=== PATIENT | male | born 1990 | race Caucasian/White ===

== ENCOUNTER 2018-01-23 17:35 | Emergency (ER) | payer SELFPAY ==
[2018-01-23 20:11] VITALS: BP 142/82
--- NOTE | 2018-01-23 20:14 | ED ---
Bite Injury/Animal - HPI Summary HPI Summary: Pt here w/ Lt hand cat bite 3 days ago. Was bitten by his own cat (shon UTD). Started augmentin day of and seemed to be doing okay but worse today (NOTE: went back to work today, no elevation, no rest and no ibuprofen). Came in as his line around redness has been spreading each day and thought he should get this checked out. Denies fever, chills, N/V/D, numbness, tingling, weakness. Back of hand feels puffy, tender and warm - better with ice. He admits he does not have insurance and would like to keep testing and treatment to a minimum. - History of Current Complaint Chief Complaint: EDExtremityUpper Stated Complaint: ANIMAL BITE LT HAND Time Seen by Provider: 01/23/18 18:56 Hx Obtained From: Patient, Family/Display Coordinator - female want ad receiver Pain Intensity: 2 - Allergies/Home Medications Allergies/Adverse Reactions: Allergies Allergy/AdvReac Type Severity Reaction Status Date / Time No Known Allergies Allergy Verified 01/23/18 17:44 PMH/Surg Hx/FS Hx/Imm Hx Previously Healthy: Yes Endocrine/Hematology History: Denies: Hx Anticoagulant Therapy, Hx Blood Disorders, Hx Diabetes - Immunization History Immunizations Up to Date: Yes Infectious Disease History: No Infectious Disease History: Denies: Traveled Outside the [place] in Last 30 Days - Social History Occupation: Employed Full-time - self employed - [employer] Lives: With Family Alcohol Use: Weekly Substance Use Type: Reports: Marijuana Hx Tobacco Use: No Smoking Status (MU): Never Smoked Tobacco Review of Systems Constitutional: Negative Positive: no symptoms reported Positive: Edema. Negative: Decreased ROM Skin: Other - infection Neurological: Negative Psychological: Normal All Other Systems Reviewed And Are Negative: Yes Physical Exam Triage Information Reviewed: Yes Vital Signs On Initial Exam: Initial Vitals Temp Pulse Resp BP Pulse Ox 97.8 F 78 16 161/62 99 01/23/18 17:42 01/23/18 17:42 01/23/18 17:42 01/23/18 17:42 01/23/18 17:42 Vital Signs Reviewed: Yes Appearance: Positive: Well-Appearing, No Pain Distress, Well-Nourished Skin: Positive: Warm, Skin Color Reflects Adequate Perfusion, Dry - 2 areas of small scabbing over dorsum of Lt hand - 1 over 2nd MCP joint and other over tendon more proximal to 2nd MCP joint (extensor surfaces); erythema is moving just proximal to wrist crease - no streaking and no palpable LN's throughout entire UE; area of edema is red, warm and boggy - no drainage w/ pressure Head/Face: Positive: Normal Head/Face Inspection Eyes: Positive: EOMI ENT: Positive: Hearing grossly normal Respiratory/Lung Sounds: Positive: Breath Sounds Present Cardiovascular: Positive: Pulses are Symmetrical in both Upper and Lower Extremities Musculoskeletal: Positive: Strength/ROM Intact - no pain along Lt index finger extensor tendon w/ passive ROM Neurological: Positive: Normal, Sensory/Motor Intact, Alert, Oriented to Person Place, Time, CN Intact II-III Psychiatric: Positive: Normal Procedures - Procedure Summary Procedure Summary: Soaked hand in warm water, unroofed proximal scab w/ sterile forceps after washing hand with iodine - expressed scant purulent drainage from site - irrigated opening with sterile saline and packed with tiny amount of sterile gauze - covered and wrapped w/ sterile gauze and MAXIMILIANO wrap - pt tolerated well Diagnostics - Vital Signs Vital Signs Temp Pulse Resp BP Pulse Ox 01/23/18 17:42 97.8 F 78 16 161/62 99 - Laboratory Lab Statement: Any lab studies that have been ordered have been reviewed, and results considered in the medical decision making process. Bite Injury Course/Dx - Course Course Of Treatment: Pt's cat bite infection appears to be worsening despite augment however he has been applying ice, today he didn't elevate or rest or take ibuprofen (worse) and initially applied triple anbx ointment, occluding wound from drainage. Does not appear to have tendon infection today. Discussed with Dr. Dietrich who feels adding levaquin and close monitoring with heat, soaks, etc should suffice however if worse, return to ED. Pt and female want ad receiver agree w/ plan. Discussed danger s/sx of when to return to ED. 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 Discharge - Discharge Plan Condition: Stable Disposition: HOME Prescriptions: Levofloxacin TAB* [Levaquin TAB*] 750 mg PO DAILY #10 tab Patient Education Materials: Animal Bite (ED) Referrals: No Primary Care Phys,NOPCP [Primary Care Provider] - Additional Instructions: Soak and apply warm compresses the milk area to express infection if possible Keep elevated Rest Take ibuprofen - may take 800mg every 8 hours with food until swelling improves , then drop to 600mg every 6 hours as needed Continue augmentin as directed Follow-up with medical provider in 1-2 days for recheck *If worse or you develop streaking, fever, nausea, pain with passive movement of Left index finger (you move the finger with your other hand and it hurts), return to ED
== END 2018-01-23 20:11 | disposition home or self-care (01) ==
LOC: ED 17:35
DX: S61.452A Open bite of left hand, initial encounter (principal); L03.114 Cellulitis of left upper limb; B96.89 Other specified bacterial agents as the cause of diseases classified elsewhere; W55.01XA Bitten by cat, initial encounter; Y92.9 Unspecified place or not applicable
CPT/HCPCS: 99282

== ENCOUNTER 2018-01-24 14:45 | Emergency (ER) | payer SELFPAY ==
[2018-01-24] MEDS ORDERED: Tetan/Diph/Pertus SYR(Tdap)* 0.5 ML SYR(BOOSTRIX) use SYR IM ONE (14:58)
--- NOTE | 2018-01-24 15:36 | ED ---
Bite Injury/Animal - HPI Summary HPI Summary: Patient here for recheck of right hand Bite infection as well as to update his tetanus vaccine. Call PCP today and last tetanus was in 2007. He has kept his dressing in place since leaving last night until he came in this afternoon. There is some purulent drainage from the puncture wound that was unroofed yesterday. Redness and swelling have improved. Patient on longer has pain with active or passive index finger range of motion. Denies streaking, fever, fatigue. Has been taking Augmentin and Levaquin as directed. Continues to elevate, rest, apply heat and has been taking ibuprofen today as well. - History of Current Complaint Chief Complaint: EDGeneral Stated Complaint: TETANUS SHOT Time Seen by Provider: 01/24/18 14:58 Hx Obtained From: Patient, Family/Cold Meat Cook - female loin trimmer Pain Intensity: 0 - Allergies/Home Medications Allergies/Adverse Reactions: Allergies Allergy/AdvReac Type Severity Reaction Status Date / Time No Known Allergies Allergy Verified 01/23/18 17:44 PMH/Surg Hx/FS Hx/Imm Hx Previously Healthy: Yes - cat bite Rt hand w/ cellulitis/abscess Endocrine/Hematology History: Denies: Hx Anticoagulant Therapy, Hx Blood Disorders, Hx Diabetes - Immunization History Immunizations Up to Date: No Infectious Disease History: No Infectious Disease History: Denies: Traveled Outside the [place] in Last 30 Days - Family History Known Family History: Positive: None - Social History Occupation: Employed Full-time Lives: With Family Alcohol Use: Weekly Substance Use Type: Reports: Marijuana Hx Tobacco Use: No Smoking Status (MU): Never Smoked Tobacco Review of Systems Constitutional: Negative Negative: Fever, Chills, Fatigue Musculoskeletal: Negative Skin: Other - improving Neurological: Negative Psychological: Normal All Other Systems Reviewed And Are Negative: Yes Physical Exam Triage Information Reviewed: Yes Vital Signs On Initial Exam: Initial Vitals Temp Pulse Resp BP Pulse Ox 97 F 48 16 159/102 99 01/24/18 14:46 01/24/18 14:46 01/24/18 14:46 01/24/18 14:46 01/24/18 14:46 Vital Signs Reviewed: Yes Appearance: Positive: Well-Appearing, No Pain Distress, Well-Nourished Skin: Positive: Warm, Skin Color Reflects Adequate Perfusion - Area of erythema , warmth, tenderness and bogginess over right dorsal hand is improved today erythema smaller and puncture wound that was unroofed yesterday has scant seropurulent dischargeno streaking, no fever to touch Head/Face: Positive: Normal Head/Face Inspection Eyes: Positive: EOMI ENT: Positive: Hearing grossly normal Cardiovascular: Positive: Pulses are Symmetrical in both Upper and Lower Extremities Musculoskeletal: Positive: Normal, Strength/ROM Intact - No pain with active or passive range of motion of right index finger Neurological: Positive: Normal, Sensory/Motor Intact, Alert, Oriented to Person Place, Time, CN Intact II-III Psychiatric: Positive: Normal Diagnostics - Vital Signs Vital Signs Temp Pulse Resp BP Pulse Ox 01/24/18 14:46 97 F 48 16 159/102 99 - Laboratory Lab Statement: Any lab studies that have been ordered have been reviewed, and results considered in the medical decision making process. Bite Injury Course/Dx - Course Course Of Treatment: Patient's right hand cat bite infection to appears to be a combination of minor abscess with cellulitis has improved since yesterday's treatment. He is here today to boost his tetanus vaccine. Advised to continue treatment plan as infection seems to be healing. He is aware of danger signs and symptoms of when to return to the emergency department. - Diagnoses Provider Diagnosis: Need for tetanus booster, Encounter for wound re-check Discharge - Discharge Plan Condition: Stable Disposition: HOME Patient Education Materials: Diphtheria/Acellular Pertussis/Tetanus Vaccine ( By injection)
[2018-01-24 15:54] VITALS: BP 128/72
== END 2018-01-24 15:54 | disposition home or self-care (01) ==
LOC: ED 14:45
DX: S61.451D Open bite of right hand, subsequent encounter (principal); W55.01XD Bitten by cat, subsequent encounter
CPT/HCPCS: 90471; 90715; 99281